=== PATIENT | male | born 1995 | race Two or more races ===

== ENCOUNTER 2019-02-10 03:11 | Emergency (ER) | payer MEDICAID, OTHER ==
[~2019-02-10] VITALS: Ht 193 cm; Wt 101.6 kg
[2019-02-10 03:28] VITALS: BP 121/74
[2019-02-10] MEDS ORDERED: HYDROCODONE/APAP 5/325MG 1 EACH TABLET PO ONE (04:00)
[2019-02-10] MEDS ORDERED: ONDANSETRON 4 MG TAB.RAPDIS SL ONE (04:00)
[2019-02-10] MEDS ORDERED: ONDANSETRON 4 MG TAB.RAPDIS ONE (04:03)
[2019-02-10] MEDS ORDERED: HYDROCODONE/APAP 5/325MG 1 EACH TABLET ONE (04:03)
== END 2019-02-10 04:12 | disposition home or self-care (01) ==
LOC: ER 03:13
DX: F07.81 Postconcussional syndrome (principal); R53.1 Weakness; V49.49XA Driver injured in collision with other motor vehicles in traffic accident, initial encounter; Y93.89 Activity, other specified; Y92.413 State road as the place of occurrence of the external cause; Y99.8 Other external cause status
CPT/HCPCS: 99283; Q0162